=== PATIENT | female | born 1990 | race Caucasian/White ===

== ENCOUNTER 2019-09-06 22:50 | Emergency (ER) | payer OTHER, MEDICAID, SELFPAY ==
[2019-09-06 22:54] VITALS: BP 129/86; PULSE 72; RESP 16; TEMP 36.7; O2SAT 96; BMI 22.4
--- NOTE | 2019-09-06 23:05 | ED_ITS ---
HPI - Dental/Oral General Chief complaint: Dental/Oral Stated complaint: thinks abcess in mouth Time Seen by Provider: 09/06/19 22:55 Source: patient Mode of arrival: Ambulatory Limitations: no limitations History of Present Illness HPI Narrative: 29-year-old female with poor dentition here for evaluation of which she thinks is an abscess on the top of her mouth. She is scheduled to see a dental ?specialist? at the beginning of next month and [place] to take care of her poor dentition. She states for the past couple days she has noticed some sores on the top of her mouth. She states that she did talk with her doctor [facility] thought that this was potentially an ulcer. Related Data Previous Rx's Medication Instructions Recorded prednisone 50 mg PO [facility] 3 Days #0 tab 05/29/17 penicillin V potassium 500 mg PO QID 7 Days #28 tab 09/06/19 Allergies Allergy/AdvReac Type Severity Reaction Status Date / Time metronidazole [From [facility]YL] Allergy Unknown Unverified 01/23/18 12:18 Review of Systems Constitutional Constitutional: Denies fever(s) ENT Comments: Pain in the top of mouth Cardiovascular Cardiovascular: Denies dyspnea Respiratory Respiratory: Denies dyspnea Integumentary/Breasts Skin/Breast: Denies rash Neurologic Neurologic: Denies behavioral changes Psychiatric Psychiatric: Denies behavioral changes Patient History Medical History Allergic reaction to drug (Inactive) Drug abuse (Acute) Social History Smoking Status: Current every day smoker alcohol intake frequency: 0-2 drinks per day Substance Use Type: marijuana Exam Initial Vital Signs Initial Vital Signs: Vital Signs Temperature 98.1 F 09/06/19 22:54 Pulse Rate 72 09/06/19 22:54 Respiratory Rate 16 09/06/19 22:54 Blood Pressure 129/86 09/06/19 22:54 Pulse Oximetry 96 09/06/19 22:54 Const General: cooperative and comfortable Orientation: alert and awake HENMT Head: normal to inspection and normocephalic Ears: TM's normal bilaterally Nose: external nose normal Face and sinus: normal facial exam Mouth: other (Small sore on the top of her mouth right side) Teeth and gingiva: poor dentition Throat: posterior oropharynx normal Resp Effort & Inspection: normal respiratory effort Cardio Rate: regular rate Skin Lesions: no lesions Rashes: no rashes Neuro General: alert, awake and oriented x3 Extrem General: normal to inspection and capillary refill normal Course Orders Ordered: Discontinued Medications Penicillin V Potassium (Veetids) 500 mg PO NOW ONE Stop: 09/06/19 23:07 Last Admin: 09/06/19 23:19 Dose: 500 mg Documented by: SANDER Vital Signs Vital signs: Vital Signs - 8 hr 09/06/19 22:54 Temperature 98.1 F Pulse Rate 72 Respiratory Rate 16 Blood Pressure 129/86 Pulse Oximetry 96 MDM - Dental/Oral MDM Narrative Medical decision making narrative: No drainable abscess seen on her exam however she does have very poor dentition. There is a small area on the top of her mouth to the right that I would say would be consistent with a very early abscess. Patient was given a 1st dose of antibiotics here in the ER was sent home with a prescription. Informed her that she should keep all of her scheduled appointments a specially with the dental specialist the beginning of next month. She was given return precautions. She expressed understanding and agreement with plan. Discharge Plan Departure Patient Disposition: Home Clinical Impression: Dental abscess Discharge Date/Time: 09/06/19 23:21 Instructions: Tooth Decay, Tooth Abscess Activity Restrictions/Additional Instructions: Take the antibiotics as directed. Keep all of your scheduled medical ap pointments especially the dental appointment at the beginning of next month. Contact your primary provider for follow-up. Return to the emergency department for any new symptoms Prescriptions: New penicillin V potassium 500 mg tablet 500 mg PO QID 7 Days Qty: 28 RF: 0 No Action prednisone 50 MG tablet 50 mg PO [facility] 3 Days Qty: 0 RF: 0
[2019-09-06] MEDS: PENICILLIN VK 250 MG TABLET 500 MG PO (23:19)
--- NOTE | 2019-09-06 23:32 | PC.NURSE ---
Dentition assessed by . Pt medicated per order. tolerated well.
== END 2019-09-06 23:21 | disposition home or self-care (01) ==
PROVIDERS: Emergency Provider Emergency Medicine
DX: K04.7 Periapical abscess without sinus (principal)
CPT/HCPCS: 99282; 99283

== ENCOUNTER 2023-10-23 04:17 | Inpatient (IN) | payer OTHER, MEDICAID, SELFPAY ==
[2023-10-23] VITALS (8 sets, daily range): BP systolic 92–133; BP diastolic 47–99; PULSE 92–110; RESP 16–21; TEMP 35.9–37.3; O2SAT 96–100; BMI 27.3
[2023-10-23 05:13] LABS: Bacteria Urine Moderate (10-30); Mucus Urine 1+ (Negative); RBC Urine 0-1/HPF (0-5/HPF); Squamous Epithelial Cell Urine 5-10 /HPF (0-5/HPF); WBC Urine 5-10/HPF (0-5/HPF)
[2023-10-23 05:14] LABS: Culture Indicated Urine Specimen Cultured
--- NOTE | 2023-10-23 06:34 | ED_ITS ---
HPI - Female Genitourinary <Jacki Carballo DO - Last Filed: 10/26/23 20:44> General Chief complaint: Urogenital-Female Stated complaint: possible kidney infection Time Seen by Provider: 10/23/23 06:34 Source: patient Mode of arrival: Ambulatory History of Present Illness HPI Narrative: Patient is a 33-year-old female with current Trichomonas infection but allergic to Flagyl presenting today with 3 days of left-sided flank pain. She reports that it radiates around to her front. She feels nauseous at times but no vomiting. She has had some body aches she is also having some painful frequent urination. Does not think that she has had fever or chills. No chest pain or other symptoms. She reports that she had 1 kidney stone while with her son who is now 13. No other kidney stones. Related Data Home Medications Medication Instructions Recorded Confirmed albuterol sulfate 90 mcg/actuation 2 puff inhalation Q4H PRN wheezing 10/23/23 10/23/23 aerosol inhaler sertraline 50 mg tablet 50 mg PO DAILY 10/23/23 10/23/23 Previous Rx's Medication Instructions Recorded doxycycline hyclate 100 mg capsule 100 mg PO BID #28 caps 10/25/23 Allergies Allergy/AdvReac Type Severity Reaction Status Date / Time metronidazole [From FLAGYL] Allergy Unknown Unverified 01/23/18 12:18 Patient History <DO Olamide Jaime Last Filed: 10/26/23 20:44> Medical History (Updated 10/25/23 @ 05:43 by Beryl Levine MD) Drug abuse Allergic reaction to drug alcohol intake frequency: 0-2 drinks per day Substance Use Type: marijuana Exam <DO Olamide Jaime Last Filed: 10/26/23 20:44> Initial Vital Signs Initial Vital Signs: Vital Signs Temperature 97.3 F L 10/23/23 04:45 Pulse Rate 108 H 10/23/23 04:45 Respiratory Rate 18 10/23/23 04:45 Blood Pressure 133/60 10/23/23 04:45 Pulse Oximetry 96 10/23/23 04:45 Oxygen Delivery Method Room Air 10/23/23 04:45 GENERAL: Alert 33-year-old female appears to not feel well and in no acute distress. HEENT: Head atraumatic,EOMI, pupils reactive, face symmetric, moist mucous membranes CARDIOVASCULAR: Mildly tachycardic no murmur RESPIRATORY: Breath sounds equal bilaterally, no wheezes rales or rhonchi. ABDOMEN: Soft mild left lower quadrant pain no guarding or rebound : Tender left flank pain EXTREMITIES: Normal range of motion, no clubbing or edema. Neurovascularly intact NEUROLOGICAL: Alert and oriented x4. SKIN: Warm, dry, no laceration, no petechiae, no rashes or lesions. <Oj Rodriguez MD - Last Filed: 10/23/23 13:26> Initial Vital Signs Initial Vital Signs: Vital Signs Temperature 97.3 F L 10/23/23 04:45 Pulse Rate 108 H 10/23/23 04:45 Respiratory Rate 18 10/23/23 04:45 Blood Pressure 133/60 10/23/23 04:45 Pulse Oximetry 96 10/23/23 04:45 Oxygen Delivery Method Room Air 10/23/23 04:45 Course <Jacki Carballo DO - Last Filed: 10/26/23 20:44> Orders Ordered: Discontinued Medications Acetaminophen (Acetaminophen 325 Mg Tablet) 650 mg PO Q6H PRN PRN Reason: Fever/Mild Pain (1-3) Last Admin: 10/24/23 04:11 Dose: 650 mg Documented By: Admin: 10/23/23 18:51 Dose: 650 mg Documented By: KEATON Albuterol (Albuterol 2.5 Mg/3 Ml Neb (Adult)) 2.5 mg INH RTQ4HR PRN PRN Reason: Shortness Of Breath Albuterol (Albuterol 2.5 Mg/3 Ml Neb (Adult)) 2.5 mg INH RTQ2HR PRN PRN Reason: shortness of breath Albuterol (Albuterol 2.5 Mg/3 Ml Neb (Adult)) 2.5 mg INH RTQ4HR [facility] Last Admin: 10/24/23 12:31 Dose: Not Given Documented By: Admin: 10/24/23 07:28 Dose: 2.5 mg Documented By: Admin: 10/24/23 03:27 Dose: Not Given Documented By: Admin: 10/23/23 23:13 Dose: 2.5 mg Documented By: Admin: 10/23/23 19:49 Dose: Not Given Documented By: Admin: 10/23/23 16:00 Dose: 2.5 mg Documented By: GARY Docusate Sodium (Docusate 100 Mg Capsule) 100 mg PO BID PRN PRN Reason: Constipation Doxycycline Hyclate (Doxycycline Hyclate 100 Mg Tablet) 100 mg PO BID [facility] Last Admin: 10/24/23 09:26 Dose: 100 mg Documented By: Admin: 10/23/23 21:13 Dose: 100 mg Documented By: SHILPA Sodium Chloride (Normal Saline 0.9%) 1,000 mls @ 1,000 mls/hr IV BOLUS ONE Stop: 10/23/23 07:41 Last Infusion: 10/23/23 08:46 Dose: Infused Documented By: Admin: 10/23/23 07:47 Dose: 1,000 mls/hr Documented By: ROB Ceftriaxone Sodium 1,000 mg/ (Sodium Chloride) 100 mls @ 200 mls/hr IV NOW ONE Stop: 10/23/23 06:43 Last Infusion: 10/23/23 08:26 Dose: Infused Documented By: Admin: 10/23/23 07:46 Dose: 200 mls/hr Documented By: ROB Sodium Chloride (Normal Saline 0.9%) 1,000 mls @ 1,000 mls/hr IV BOLUS ONE Stop: 10/23/23 09:25 Last Infusion: 10/23/23 09:23 Dose: Infused Documented By: Admin: 10/23/23 08:46 Dose: 1,000 mls/hr Documented By: TYRONE Doxycycline Hyclate 100 mg/ (Sodium Chloride) 100 mls @ 100 mls/hr IV NOW ONE Stop: 10/23/23 12:43 Last Infusion: 10/23/23 13:45 Dose: 100 mls/hr Documented By: Admin: 10/23/23 13:07 Dose: 100 mls/hr Documented By: ROB Lactated Ringer's (Lactated Ringers) 1,000 mls @ 100 mls/hr IV CONT ALDA Last Admin: 10/24/23 04:11 Dose: 100 mls/hr Documented By: Infusion: 10/24/23 01:36 Dose: Infused Documented By: Admin: 10/23/23 15:36 Dose: 100 mls/hr Documented By: KEATON Clindamycin Phosphate 900 mg/ (Sodium Chloride) 106 mls @ 106 mls/hr IV Q8H [facility] Last Admin: 10/23/23 17:06 Dose: Not Given Documented By: KEATON Ceftriaxone Sodium 1,000 mg/ (Sodium Chloride) 100 mls @ 200 mls/hr IV Q24H [facility] Ceftriaxone Sodium 1,000 mg/ (Sodium Chloride) 100 mls @ 200 mls/hr IV Q24H [facility] Last Infusion: 10/24/23 07:00 Dose: Infused Documented By: Admin: 10/24/23 06:07 Dose: 200 mls/hr Documented By: SHILPA Clindamycin Phosphate (Cleocin) 900 mg in 50 mls @ 50 mls/hr IV Q8H [facility] Last Infusion: 10/24/23 09:27 Dose: Infused Documented By: Admin: 10/24/23 06:42 Dose: 50 mls/hr Documented By: Infusion: 10/24/23 00:20 Dose: Infused Documented By: Admin: 10/23/23 23:12 Dose: 50 mls/hr Documented By: Infusion: 10/23/23 16:47 Dose: Infused Documented By: Admin: 10/23/23 15:36 Dose: 50 mls/hr Documented By: KEATON Ibuprofen (Ibuprofen 600 Mg Tablet) 600 mg PO Q6H PRN PRN Reason: Fever/Mild Pain (1-3) Last Admin: 10/24/23 09:26 Dose: 600 mg Documented By: Admin: 10/23/23 18:50 Dose: 600 mg Documented By: KEATON Ketorolac Tromethamine (Ketorolac 30 Mg/Ml Vial) 15 mg IV NOW ONE Stop: 10/23/23 06:43 Last Admin: 10/23/23 07:47 Dose: 15 mg Documented By: ROB Ketorolac Tromethamine (Ketorolac 30 Mg/Ml Vial) 15 mg IV NOW ONE Stop: 10/23/23 11:27 Last Admin: 10/23/23 11:43 Dose: 15 mg Documented By: ROB Naloxone HCl (Naloxone 0.4 Mg/Ml Vial) 0.2 mg IV Q2MIN PRN PRN Reason: Opiate Reversal Ondansetron HCl (Ondansetron 4 Mg/2 Ml Inj) 4 mg IV Q8HR PRN PRN Reason: Nausea And Vomiting Last Admin: 10/24/23 10:20 Dose: 4 mg Documented By: TOÑA Oxycodone HCl (Oxycodone Ir 5 Mg Tablet) 5 mg PO Q3H PRN PRN Reason: Pain, Moderate (4-6) Last Admin: 10/24/23 09:26 Dose: 5 mg Documented By: Admin: 10/24/23 04:11 Dose: 5 mg Documented By: Admin: 10/23/23 21:21 Dose: 5 mg Documented By: SHILPA Polyethylene Glycol (Polyethylene Glycol 3350 17 Gm Powd.Pack) 17 gm PO DAILY PRN PRN Reason: Constipation Vital Signs Vital signs: Vital Signs - 8 hr 10/23/23 08:25 10/23/23 08:26 10/23/23 09:23 Pulse Rate 103 H 110 H 107 H Respiratory Rate 16 18 Blood Pressure 92/55 L 100/58 L 104/56 L Pulse Oximetry 98 97 Oxygen Delivery Method Room Air Room Air 10/23/23 10:33 Pulse Rate 101 H Respiratory Rate 18 Blood Pressure 100/49 L Pulse Oximetry 100 Oxygen Delivery Method Room Air <Oj Rodriguez MD - Last Filed: 10/23/23 13:26> Orders Ordered: Discontinued Medications Acetaminophen (Acetaminophen 325 Mg Tablet) 650 mg PO Q6H PRN PRN Reason: Fever/Mild Pain (1-3) Last Admin: 10/24/23 04:11 Dose: 650 mg Documented By: Admin: 10/23/23 18:51 Dose: 650 mg Documented By: KEATON Albuterol (Albuterol 2.5 Mg/3 Ml Neb (Adult)) 2.5 mg INH RTQ4HR PRN PRN Reason: Shortness Of Breath Albuterol (Albuterol 2.5 Mg/3 Ml Neb (Adult)) 2.5 mg INH RTQ2HR PRN PRN Reason: shortness of breath Albuterol (Albuterol 2.5 Mg/3 Ml Neb (Adult)) 2.5 mg INH RTQ4HR [facility] Last Admin: 10/24/23 12:31 Dose: Not Given Documented By: Admin: 10/24/23 07:28 Dose: 2.5 mg Documented By: Admin: 10/24/23 03:27 Dose: Not Given Documented By: Admin: 10/23/23 23:13 Dose: 2.5 mg Documented By: Admin: 10/23/23 19:49 Dose: Not Given Documented By: Admin: 10/23/23 16:00 Dose: 2.5 mg Documented By: GARY Docusate Sodium (Docusate 100 Mg Capsule) 100 mg PO BID PRN PRN Reason: Constipation Doxycycline Hyclate (Doxycycline Hyclate 100 Mg Tablet) 100 mg PO BID [facility] Last Admin: 10/24/23 09:26 Dose: 100 mg Documented By: Admin: 10/23/23 21:13 Dose: 100 mg Documented By: SHILPA Sodium Chloride (Normal Saline 0.9%) 1,000 mls @ 1,000 mls/hr IV BOLUS ONE Stop: 10/23/23 07:41 Last Infusion: 10/23/23 08:46 Dose: Infused Documented By: Admin: 10/23/23 07:47 Dose: 1,000 mls/hr Documented By: ROB Ceftriaxone Sodium 1,000 mg/ (Sodium Chloride) 100 mls @ 200 mls/hr IV NOW ONE Stop: 10/23/23 06:43 Last Infusion: 10/23/23 08:26 Dose: Infused Documented By: Admin: 10/23/23 07:46 Dose: 200 mls/hr Documented By: ROB Sodium Chloride (Normal Saline 0.9%) 1,000 mls @ 1,000 mls/hr IV BOLUS ONE Stop: 10/23/23 09:25 Last Infusion: 10/23/23 09:23 Dose: Infused Documented By: Admin: 10/23/23 08:46 Dose: 1,000 mls/hr Documented By: TYRONE Doxycycline Hyclate 100 mg/ (Sodium Chloride) 100 mls @ 100 mls/hr IV NOW ONE Stop: 10/23/23 12:43 Last Infusion: 10/23/23 13:45 Dose: 100 mls/hr Documented By: Admin: 10/23/23 13:07 Dose: 100 mls/hr Documented By: ROB Lactated Ringer's (Lactated Ringers) 1,000 mls @ 100 mls/hr IV CONT ALDA Last Admin: 10/24/23 04:11 Dose: 100 mls/hr Documented By: Infusion: 10/24/23 01:36 Dose: Infused Documented By: Admin: 10/23/23 15:36 Dose: 100 mls/hr Documented By: KEATON Clindamycin Phosphate 900 mg/ (Sodium Chloride) 106 mls @ 106 mls/hr IV Q8H [facility] Last Admin: 10/23/23 17:06 Dose: Not Given Documented By: KEATON Ceftriaxone Sodium 1,000 mg/ (Sodium Chloride) 100 mls @ 200 mls/hr IV Q24H [facility] Ceftriaxone Sodium 1,000 mg/ (Sodium Chloride) 100 mls @ 200 mls/hr IV Q24H [facility] Last Infusion: 10/24/23 07:00 Dose: Infused Documented By: Admin: 10/24/23 06:07 Dose: 200 mls/hr Documented By: SHILPA Clindamycin Phosphate (Cleocin) 900 mg in 50 mls @ 50 mls/hr IV Q8H [facility] Last Infusion: 10/24/23 09:27 Dose: Infused Documented By: Admin: 10/24/23 06:42 Dose: 50 mls/hr Documented By: Infusion: 10/24/23 00:20 Dose: Infused Documented By: Admin: 10/23/23 23:12 Dose: 50 mls/hr Documented By: Infusion: 10/23/23 16:47 Dose: Infused Documented By: Admin: 10/23/23 15:36 Dose: 50 mls/hr Documented By: KEATON Ibuprofen (Ibuprofen 600 Mg Tablet) 600 mg PO Q6H PRN PRN Reason: Fever/Mild Pain (1-3) Last Admin: 10/24/23 09:26 Dose: 600 mg Documented By: Admin: 10/23/23 18:50 Dose: 600 mg Documented By: KEATON Ketorolac Tromethamine (Ketorolac 30 Mg/Ml Vial) 15 mg IV NOW ONE Stop: 10/23/23 06:43 Last Admin: 10/23/23 07:47 Dose: 15 mg Documented By: ROB Ketorolac Tromethamine (Ketorolac 30 Mg/Ml Vial) 15 mg IV NOW ONE Stop: 10/23/23 11:27 Last Admin: 10/23/23 11:43 Dose: 15 mg Documented By: ROB Naloxone HCl (Naloxone 0.4 Mg/Ml Vial) 0.2 mg IV Q2MIN PRN PRN Reason: Opiate Reversal Ondansetron HCl (Ondansetron 4 Mg/2 Ml Inj) 4 mg IV Q8HR PRN PRN Reason: Nausea And Vomiting Last Admin: 10/24/23 10:20 Dose: 4 mg Documented By: TOÑA Oxycodone HCl (Oxycodone Ir 5 Mg Tablet) 5 mg PO Q3H PRN PRN Reason: Pain, Moderate (4-6) Last Admin: 10/24/23 09:26 Dose: 5 mg Documented By: Admin: 10/24/23 04:11 Dose: 5 mg Documented By: Admin: 10/23/23 21:21 Dose: 5 mg Documented By: SHILPA Polyethylene Glycol (Polyethylene Glycol 3350 17 Gm Powd.Pack) 17 gm PO DAILY PRN PRN Reason: Constipation Reevaluation(s) Reevaluation #1: 10:15 a.m., CT results are reviewed indicating concern for possible ovarian torsion. I personally interviewed the patient, she has had 3 days of left lower quadrant pain, onset was abrupt was associated with nausea no fevers she has pain with urination but it has not dysuria at the urethra it is pain in the left lower quadrant. Has a history of being diagnosed with Trichomonas however not treated, she has an allergy to Flagyl therefore has not received any treatment. Has a history of gonorrhea and chlamydia in the past, tells me that on September 25 she was tested and negative at [facility]. Presently having any vaginal discharge. She is feeling better after treatment. On examination she has normal bowel sounds. She does not have CVAT. She is tender in the left pelvis. Patient is advised of the plan to obtain a pelvic ultrasound. She is in agreement. Reevaluation #2: Pelvic ultrasound is not consistent with ovarian torsion. There is concern for bilateral dilated fallopian tubes with the left side being tender tubo-ovarian abscesses considered. Pelvic exam is performed. The patient has a purulent cervical discharge she has cervical motion tenderness. I am unable to appreciate adnexal mass or tenderness on pelvic exam but she has consistent left pelvic tenderness when palpated from the abdominal wall. I have added doxycycline to her medications, I note that she has a metronidazole allergy. Additionally, we will consult Gynecology. Consultations Consultation #1: D/W Dr Banda, [employer], coming to see pt. after seeing the patient, Dr. Banda will admit Vital Signs Vital signs: Vital Signs - 8 hr 10/23/23 08:25 10/23/23 08:26 10/23/23 09:23 Pulse Rate 103 H 110 H 107 H Respiratory Rate 16 18 Blood Pressure 92/55 L 100/58 L 104/56 L Pulse Oximetry 98 97 Oxygen Delivery Method Room Air Room Air 10/23/23 10:33 Pulse Rate 101 H Respiratory Rate 18 Blood Pressure 100/49 L Pulse Oximetry 100 Oxygen Delivery Method Room Air MDM - Female Genitourinary <Jacki Kait, DO - Last Filed: 10/26/23 20:44> Lab Data 10/24/23 06:34 10/23/23 07:30 Labs: Lab Results 10/23/23 10/23/23 10/23/23 Range/Units 04:57 07:30 07:35 WBC 17.5 H (4.5-11.0) X10^3/uL RBC 4.26 (4.0-5.2) X10^6/uL Hgb 13.0 (12.0-16.0) g/dL Hct 37.4 (36-46) % MCV 87.7 (80-100) fL MCH 30.5 (26-34) PG MCHC 34.8 (30-36) % RDW 13.1 (11.6-14.8) % Plt Count 180 (150-400) X10^3/uL Neut % (Auto) 83.7 H (50-75) % Lymph % (Auto) 9.3 L (25-40) % [place] % (Auto) 5.7 (3-14) % Eos % (Auto) 0.9 L (2-4) % Baso % (Auto) 0.4 (0-2) % Neut # (Auto) 48572 H (3423-8021) /uL Lymph # (Auto) 1600 (3586-8108) /uL [place] # (Auto) 1000 H (0-900) /uL Eos # (Auto) 200 (0-450) /uL Baso # (Auto) 100 (0-100) /uL Sodium 133 L (137-145) mmol/L Potassium 4.3 (3.4-5.1) mmol/L Chloride 100 (98-107) mmol/L Carbon Dioxide 25 (22-32) mmol/L BUN 13 (7-17) mg/dL Creatinine 0.51 L (0.52-1.04) mg/dL Estimated GFR > 60 (>60) mL/min BUN/Creatinine Ratio 25.5 H (6-22) Glucose 113 H (70-100) mg/dL Lactate 1.2 (0.7-2.1) mmol/L Calcium 8.9 (8.4-10.2) mg/dL Total Bilirubin 0.7 (0.2-1.3) mg/dL AST 28 (14-36) IU/L ALT 20 (<35) IU/L Alkaline Phosphatase 60 (38-126) U/L Total Protein 8.1 (6.3-8.2) g/dL Albumin 4.1 (3.5-5.0) g/dL Globulin 4.0 (1.7-4.1) g/dL Albumin/Globulin Ratio 1.0 (1.0-2.8) Serum , Qual Negative (Negative) Urine RBC 0-1/hpf (0-5/HPF) Urine WBC 5-10/hpf H (0-5/HPF) Ur Squamous Epith Cells 5-10 /hpf H (0-5/HPF) Urine Bacteria Moderate (10-30) H (None) Urine Mucus 1+ H (Negative) Ur Culture Indicated? Specimen cultured Urine Test Negative (Negative) Ur Chlamydia DNA (PCR) N gonorrhoeae DNA (PCR) 10/23/23 Range/Units 12:40 WBC (4.5-11.0) X10^3/uL RBC (4.0-5.2) X10^6/uL Hgb (12.0-16.0) g/dL Hct (36-46) % MCV (80-100) fL MCH (26-34) PG MCHC (30-36) % RDW (11.6-14.8) % Plt Count (150-400) X10^3/uL Neut % (Auto) (50-75) % Lymph % (Auto) (25-40) % [place] % (Auto) (3-14) % Eos % (Auto) (2-4) % Baso % (Auto) (0-2) % Neut # (Auto) (0831-7953) /uL Lymph # (Auto) (9153-4262) /uL [place] # (Auto) (0-900) /uL Eos # (Auto) (0-450) /uL Baso # (Auto) (0-100) /uL Sodium (137-145) mmol/L Potassium (3.4-5.1) mmol/L Chloride (98-107) mmol/L Carbon Dioxide (22-32) mmol/L BUN (7-17) mg/dL Creatinine (0.52-1.04) mg/dL Estimated GFR (>60) mL/min BUN/Creatinine Ratio (6-22) Glucose (70-100) mg/dL Lactate (0.7-2.1) mmol/L Calcium (8.4-10.2) mg/dL Total Bilirubin (0.2-1.3) mg/dL AST (14-36) IU/L ALT (<35) IU/L Alkaline Phosphatase (38-126) U/L Total Protein (6.3-8.2) g/dL Albumin (3.5-5.0) g/dL Globulin (1.7-4.1) g/dL Albumin/Globulin Ratio (1.0-2.8) Serum , Qual (Negative) Urine RBC (0-5/HPF) Urine WBC (0-5/HPF) Ur Squamous Epith Cells (0-5/HPF) Urine Bacteria (None) Urine Mucus (Negative) Ur Culture Indicated? Urine Test (Negative) Ur Chlamydia DNA (PCR) Not detected N gonorrhoeae DNA (PCR) Not detected Urine Dip Bedside Urine Glucose Negative Bedside Urine Bilirubin + 1 Bedside Urine Ketone - Negative Urine Specific [place] 1.015 Bedside Urine Occult Blood - Negative Bedside Urine pH 6.0 Bedside Urine Protein + 30 Bedside Urine Urobilinogen - Negative Bedside Urine Nitrite - Negative Bedside Urine Leukocytes + 70 Esterase MDM Narrative Medical decision making narrative: Patient 33-year-old female presents today with left flank pain. She does have symptoms consistent with UTI and possible pyelonephritis. However pain radiating to her groin concern for kidney stone as well. Urinalysis does show bacteria leukocytes consistent UTI. Blood work and imaging pending. Patient signed out to After imaging and further evaluation, patient appears to have a pelvic infection and likely tubo-ovarian abscess based on ultrasound findings. She is nontoxic in appearance but has leukocytosis and is hemodynamically stable. She has been started on ceftriaxone and doxycycline. Gynecology has seen the patient and will admit. <Oj Rodriguez MD - Last Filed: 10/23/23 13:26> Lab Data Lab results narrative: [place] [address]. CMP is unremarkable, test is negative, urinalysis has pyuria and bacteriuria mature squamous epithelial cells present as well Labs: Lab Results 10/23/23 10/23/23 10/23/23 Range/Units 04:57 07:30 07:35 WBC 17.5 H (4.5-11.0) X10^3/uL RBC 4.26 (4.0-5.2) X10^6/uL Hgb 13.0 (12.0-16.0) g/dL Hct 37.4 (36-46) % MCV 87.7 (80-100) fL MCH 30.5 (26-34) PG MCHC 34.8 (30-36) % RDW 13.1 (11.6-14.8) % Plt Count 180 (150-400) X10^3/uL Neut % (Auto) 83.7 H (50-75) % Lymph % (Auto) 9.3 L (25-40) % [place] % (Auto) 5.7 (3-14) % Eos % (Auto) 0.9 L (2-4) % Baso % (Auto) 0.4 (0-2) % Neut # (Auto) 01626 H (9740-8029) /uL Lymph # (Auto) 1600 (4768-6886) /uL [place] # (Auto) 1000 H (0-900) /uL Eos # (Auto) 200 (0-450) /uL Baso # (Auto) 100 (0-100) /uL Sodium 133 L (137-145) mmol/L Potassium 4.3 (3.4-5.1) mmol/L Chloride 100 (98-107) mmol/L Carbon Dioxide 25 (22-32) mmol/L BUN 13 (7-17) mg/dL Creatinine 0.51 L (0.52-1.04) mg/dL Estimated GFR > 60 (>60) mL/min BUN/Creatinine Ratio 25.5 H (6-22) Glucose 113 H (70-100) mg/dL Lactate 1.2 (0.7-2.1) mmol/L Calcium 8.9 (8.4-10.2) mg/dL Total Bilirubin 0.7 (0.2-1.3) mg/dL AST 28 (14-36) IU/L ALT 20 (<35) IU/L Alkaline Phosphatase 60 (38-126) U/L Total Protein 8.1 (6.3-8.2) g/dL Albumin 4.1 (3.5-5.0) g/dL Globulin 4.0 (1.7-4.1) g/dL Albumin/Globulin Ratio 1.0 (1.0-2.8) Serum , Qual Negative (Negative) Urine RBC 0-1/hpf (0-5/HPF) Urine WBC 5-10/hpf H (0-5/HPF) Ur Squamous Epith Cells 5-10 /hpf H (0-5/HPF) Urine Bacteria Moderate (10-30) H (None) Urine Mucus 1+ H (Negative) Ur Culture Indicated? Specimen cultured Urine Test Negative (Negative) Ur Chlamydia DNA (PCR) N gonorrhoeae DNA (PCR) 10/23/23 Range/Units 12:40 WBC (4.5-11.0) X10^3/uL RBC (4.0-5.2) X10^6/uL Hgb (12.0-16.0) g/dL Hct (36-46) % MCV (80-100) fL MCH (26-34) PG MCHC (30-36) % RDW (11.6-14.8) % Plt Count (150-400) X10^3/uL Neut % (Auto) (50-75) % Lymph % (Auto) (25-40) % [place] % (Auto) (3-14) % Eos % (Auto) (2-4) % Baso % (Auto) (0-2) % Neut # (Auto) (1969-8063) /uL Lymph # (Auto) (2691-7681) /uL [place] # (Auto) (0-900) /uL Eos # (Auto) (0-450) /uL Baso # (Auto) (0-100) /uL Sodium (137-145) mmol/L Potassium (3.4-5.1) mmol/L Chloride (98-107) mmol/L Carbon Dioxide (22-32) mmol/L BUN (7-17) mg/dL Creatinine (0.52-1.04) mg/dL Estimated GFR (>60) mL/min BUN/Creatinine Ratio (6-22) Glucose (70-100) mg/dL Lactate (0.7-2.1) mmol/L Calcium (8.4-10.2) mg/dL Total Bilirubin (0.2-1.3) mg/dL AST (14-36) IU/L ALT (<35) IU/L Alkaline Phosphatase (38-126) U/L Total Protein (6.3-8.2) g/dL Albumin (3.5-5.0) g/dL Globulin (1.7-4.1) g/dL Albumin/Globulin Ratio (1.0-2.8) Serum , Qual (Negative) Urine RBC (0-5/HPF) Urine WBC (0-5/HPF) Ur Squamous Epith Cells (0-5/HPF) Urine Bacteria (None) Urine Mucus (Negative) Ur Culture Indicated? Urine Test (Negative) Ur Chlamydia DNA (PCR) Not detected N gonorrhoeae DNA (PCR) Not detected Urine Dip Bedside Urine Glucose Negative Bedside Urine Bilirubin + 1 Bedside Urine Ketone - Negative Urine Specific [place] 1.015 Bedside Urine Occult Blood - Negative Bedside Urine pH 6.0 Bedside Urine Protein + 30 Bedside Urine Urobilinogen - Negative Bedside Urine Nitrite - Negative Bedside Urine Leukocytes + 70 Esterase Imaging Data US - NURSING CLERK: Radiologist's Impression: PROCEDURE: US PELVIC COMPLETE INDICATIONS: Severe left leg pain/left lower quadrant pain. TECHNIQUE: Real-time scanning was performed of the pelvic organs, with image documentation. Additional endovaginal scanning was necessary due to incomplete visualization of the adnexal and endometrial structures by transabdominal scanning. COMPARISON: [facility], CT, ABD/PELVIS W/CON (PNL), 12/21/2013, 17:39. MR, ABDOMEN W&W/O CONTRAST, 12/22/2013, 20:16. US, PELVIS SONO TRANSVAGINAL (PNL), 12/23/2013, 12:29. [facility], CT, CT KIDNEY URETER BLADDER (KUB), 10/23/2023, 8:17. FINDINGS: Uterus: Uterus is normal in size measuring 7.8 x 4.9 x 4.9 cm. The myometrium is heterogeneous. The endometrium measures 7.6 mm combined thickness. -There is a 2.1 x 1.9 x 1.6 cm intramural fibroid in the anterior midline near the fundus. -there is a smaller 1.7 x 1.3 x 1.3 cm masslike area in the left anterior fundus, demonstrating central sonolucency, suggesting fluid. Ovaries: Both ovaries are enlarged and have heterogeneous echotexture. The right ovary measures 7.5 x 5.4 x 5.2 cm, with a calculated ovarian volume of 89 cc. There is a thick-walled cyst in the right ovary measuring 4.5 x 4.1 x 2.6 cm. A 3.1 x 3.3 x 2.6 cm simple cyst is also noted in the right ovary. The left ovary measures 7.5 x 6.0 x 4.0 cm, with a calculated ovarian volume of 92 cc. There is a 4.2 x 3.9 x 2.9 cm thick wall complex cystic structure in the left ovary with peripheral increased vascularity. There is a 4.7 by 2.6 x 1.4 cm thick-walled anechoic structure adjacent to the left ovary, indeterminate (dilated fallopian tube versus a bowel). Suspect dilated fallopian tubes bilaterally. On Doppler ultrasound, vascularity is present in both ovaries. No adnexal masses are seen. Other: No pathologic free abdominal or pelvic fluid. IMPRESSION: 1. Ovaries are enlarged with complex cysts bilaterally. Question dilated fallopian tubes bilaterally. The ultrasound findings are suggestive of hydrosalpinx and tubal or abscesses. Recommend clinical correlation. After adequate treatment, recommend a short-term follow-up ultrasound. 2. Myomatous uterus with 2 uterine fibroids. One of the fibroid demonstrates central sonolucency suggesting fluid, most likely a degenerating fibroid. Consider MRI for follow-up evaluation if clinically indicated. The result was discussed with Dr. Rodriguez in ER. [facility] Narrative Medical decision making narrative: Patient 33-year-old female presents today with left flank pain. She does have symptoms consistent with UTI and possible pyelonephritis. However pain radiating to her groin concern for kidney stone as well. Urinalysis does show bacteria leukocytes consistent UTI. Patient signed out to After imaging and further evaluation, patient appears to have a pelvic infection and likely tubo-ovarian abscess based on ultrasound findings. She is nontoxic in appearance but has leukocytosis and is hemodynamically stable. She has been started on ceftriaxone and doxycycline. Gynecology has seen the patient and will admit. Discharge Plan Departure Patient Disposition: Admitted As Inpatient Clinical Impression: Tubo-ovarian abscess Admit Date/Time: 10/23/23 13:14 Admit Provider: Opal Banda
--- NOTE | 2023-10-23 06:42 | DI.CT.S_ITS ---
PROCEDURE: CT KIDNEY URETER BLADDER (KUB) INDICATIONS: left flank pain TECHNIQUE: Axial sections were acquired from the lung bases to the pubic symphysis. Coronal and sagittal reformats were performed. For radiation dose reduction, the following was used: automated exposure control, adjustment of mA and/or kV according to patient size. COMPARISON: None. FINDINGS: Image quality: Diagnostic. Lower Chest: No significant findings. URINARY: Right Kidney: No stones or hydronephrosis. Right Ureter: No hydroureter. Left Kidney: No stones or hydronephrosis. Left Ureter: No hydroureter. Bladder: Normal wall thickness. No stones. ABDOMEN: Liver: No contour-deforming solid mass. Gallbladder: No radiopaque gallstones or wall thickening. Biliary ducts: No biliary dilation. Pancreas: No ductal dilation. Spleen: Size is within normal limits. Adrenal Glands: No adrenal nodules. Stomach and Bowel: Normal colonic caliber, without significant wall thickening. Peritoneum: No abnormal intraperitoneal fluid. No free air. Ventral Wall: No hernia. Abdominal Nodes: No enlarged retroperitoneal or mesenteric lymph nodes. Vessels: Aorta and inferior vena cava are normal in size. PELVIS: Pelvic Organs: Ovaries appear prominent bilaterally. There is questionable appearance of very minimal stranding surrounding the left ovary. Pelvic Nodes: Unremarkable. Miscellaneous: No inguinal hernias are seen. Bones: Unremarkable. IMPRESSION: No obstructing stones or hydronephrosis. Ovaries are prominent bilaterally with minimal appearance stranding surrounding the left ovary. While this is overall nonspecific, pelvic ultrasound is recommended, as torsion cannot be excluded. Dictated by: Aisha Bassett M.D. on 10/23/2023 at 8:28 Approved by: Aisha Bassett M.D. on 10/23/2023 at 8:39
[2023-10-23 07:42] LABS: Add Manual Diff / Slide Review NO; Basophils Absolute Auto 100 /uL (0-100); Basophils Percent Auto 0.4 % (0-2); Eosinophils Absolute Auto 200 /uL (0-450); Eosinophils Percent Auto 0.9 % (2-4); Hematocrit 37.4 % (36-46); Lymphocytes Absolute Auto 1600 /uL (1100-4500); Lymphocytes Percent Auto 9.3 % (25-40); Mean Corpuscular HGB Conc 34.8 % (30-36); Mean Corpuscular Hemoglobin 30.5 PG (26-34); Mean Corpuscular Volume 87.7 fL (80-100); Monocytes Absolute Auto 1000 /uL (0-900); Monocytes Percent Auto 5.7 % (3-14); Neutrophils Absolute Auto 14600 /uL (1500-7000); Neutrophils Percent Auto 83.7 % (50-75); Platelet Count 180 X10^3/uL (150-400); Red Blood Cell Count 4.26 X10^6/uL (4.0-5.2); Red Cell Distribution Width 13.1 % (11.6-14.8); White Blood Cell Count 17.5 X10^3/uL (4.5-11.0)
[2023-10-23] MEDS: cefTRIAXone 1,000 MG in SODIUM CHLORIDE 0.9% 100 ML 200 MG IV (07:46)
[2023-10-23] MEDS: KETOROLAC 30 MG/ML VIAL 15 MG IV ×2 (07:47→11:43)
[2023-10-23] MEDS: SODIUM CHLORIDE 0.9% 1,000 ML 1000 ML IV ×2 (07:47→08:46)
[2023-10-23 07:59] LABS: Alanine Aminotransferase 20 IU/L (<35); Albumin 4.1 g/dL (3.5-5.0); Alkaline Phosphatase 60 U/L (38-126); Aspartate Aminotransferase 28 IU/L (14-36); BUN Creatinine Ratio 25.5 (6-22); Bilirubin Total 0.7 mg/dL (0.2-1.3); Blood Urea Nitrogen 13 mg/dL (7-17); Calcium 8.9 mg/dL (8.4-10.2); Carbon Dioxide 25 mmol/L (22-32); Chloride 100 mmol/L (98-107); Estimated Glomerular Filt Rate > 60 mL/min (>60); Glucose 113 mg/dL (70-100); Potassium 4.3 mmol/L (3.4-5.1); Sodium 133 mmol/L (137-145); Total Protein 8.1 g/dL (6.3-8.2)
[2023-10-23 08:00] LABS: HEMOLYSIS 100 (0-50)
[2023-10-23 08:05] LABS: Pregnancy Test Urine Negative (Negative)
--- NOTE | 2023-10-23 08:27 | PC.NURSE ---
Vitals obtained at 0820 and pt is now meeting sepsis criteria, Dr. Rodriguez notified and lactate and additional IVF ordered.
[2023-10-23 08:41] LABS: Lactate (Lactic Acid) 1.2 mmol/L (0.7-2.1)
--- NOTE | 2023-10-23 10:22 | DI.US.S_ITS ---
PROCEDURE: US PELVIC COMPLETE INDICATIONS: Severe left leg pain/left lower quadrant pain. TECHNIQUE: Real-time scanning was performed of the pelvic organs, with image documentation. Additional endovaginal scanning was necessary due to incomplete visualization of the adnexal and endometrial structures by transabdominal scanning. COMPARISON: [facility], CT, ABD/PELVIS W/CON (PNL), 12/21/2013, 17:39. MR, ABDOMEN W&W/O CONTRAST, 12/22/2013, 20:16. US, PELVIS SONO TRANSVAGINAL (PNL), 12/23/2013, 12:29. [facility], CT, CT KIDNEY URETER BLADDER (KUB), 10/23/2023, 8:17. FINDINGS: Uterus: Uterus is normal in size measuring 7.8 x 4.9 x 4.9 cm. The myometrium is heterogeneous. The endometrium measures 7.6 mm combined thickness. -There is a 2.1 x 1.9 x 1.6 cm intramural fibroid in the anterior midline near the fundus. -there is a smaller 1.7 x 1.3 x 1.3 cm masslike area in the left anterior fundus, demonstrating central sonolucency, suggesting fluid. Ovaries: Both ovaries are enlarged and have heterogeneous echotexture. The right ovary measures 7.5 x 5.4 x 5.2 cm, with a calculated ovarian volume of 89 cc. There is a thick-walled cyst in the right ovary measuring 4.5 x 4.1 x 2.6 cm. A 3.1 x 3.3 x 2.6 cm simple cyst is also noted in the right ovary. The left ovary measures 7.5 x 6.0 x 4.0 cm, with a calculated ovarian volume of 92 cc. There is a 4.2 x 3.9 x 2.9 cm thick wall complex cystic structure in the left ovary with peripheral increased vascularity. There is a 4.7 by 2.6 x 1.4 cm thick-walled anechoic structure adjacent to the left ovary, indeterminate (dilated fallopian tube versus a bowel). Suspect dilated fallopian tubes bilaterally. On Doppler ultrasound, vascularity is present in both ovaries. No adnexal masses are seen. Other: No pathologic free abdominal or pelvic fluid. IMPRESSION: 1. Ovaries are enlarged with complex cysts bilaterally. Question dilated fallopian tubes bilaterally. The ultrasound findings are suggestive of hydrosalpinx and tubal or abscesses. Recommend clinical correlation. After adequate treatment, recommend a short-term follow-up ultrasound. 2. Myomatous uterus with 2 uterine fibroids. One of the fibroid demonstrates central sonolucency suggesting fluid, most likely a degenerating fibroid. Consider MRI for follow-up evaluation if clinically indicated. The result was discussed with Dr. Rodriguez in ER. We strive to produce accurate, complete, and clear reports of imaging services. To assist us in improving patient care, this report was composed using standard report templates and voice recognition software. Therefore, it may contain abnormal punctuation, insertions and/or omissions. Occasional wrong-word or sound-alike substitutions may occur. Though we review the report and make efforts to correct it, we do recommend that the report be read carefully in proper context to recognize any text inaccuracies. Dictated by: Isaac Zaidi M.D. on 10/23/2023 at 11:30 Approved by: Isaac Zaidi M.D. on 10/23/2023 at 12:18
[2023-10-23 10:55] LABS: Pregnancy Test Serum,Qual Negative (Negative)
--- NOTE | 2023-10-23 11:30 | PC.NURSE ---
Pt has returned from MRI and hooked up to snuff drier. Pt still rates pain as a 2/10 and states that is behind his right eye and towards the middle of his head and it feels like pressure. Pt a&ox4 and answers all questions appropriately.
[2023-10-23] MEDS: DOXYCYCLINE 100 MG in SODIUM CHLORIDE 0.9% 100 ML IV (13:07)
--- NOTE | 2023-10-23 13:11 | PC.NURSE ---
Pt c/o 8/10 pain after pelvic exam. Requesting more pain meds and visibly uncomfortable. Dr Rodriguez notified.
--- NOTE | 2023-10-23 13:56 | P.HPOB_ITS ---
History of Present Illness History of Present Illness Reason for admission: other (Tubo-ovarian abscess) Narrative: Katie Eid is a 33 year old para 1 female presented to the emergency room complaining of 3 days of left pelvic pain. The patient states that for several months she has had issues with STD infections. She was treated for chlamydia but has a metronidazole allergy so they have been unable to cure the infection. The patient has not been sexually active for several months. When she urinates she has pressure and pain. Her menses are regular for most part although sometimes she has multiple episodes of bleeding per month and this has been going on for most of her life. Patient is unsure if she has fevers. She does have a history of narcotic abuse for some time, was on methadone program but currently is not an issue for the patient. Patient currently is homeless living in her car with her boyfriend. Patient states she is hepatitis-C positive for which she is being followed at [facility]. Patient has a long history of constipation. Patient has asthma for which she uses her albuterol inhaler multiple times a day. Patient was found to have an elevated white blood count and possible tubo- ovarian abscess by ultrasound. Physical exam patient's HEENT exam within normal limits. Lungs are clear to auscultation percussion. Heart is regular rate and rhythm no S3-S4 murmurs. No thyromegaly. Abdomen is soft with tenderness throughout the abdomen with more pain in the lower abdomen. Pelvic exam poor report from the emergency room doctor showed purulent material coming from the cervical os. ON LICENSE OF [facility] Medical History (Updated 10/23/23 @ 14:23 by Opal Banda MD) Drug abuse Allergic reaction to drug Social History Smoking Status: Current every day smoker Meds Home Medications and Allergies Home Medications Medication Instructions Recorded Confirmed Type prednisone 50 mg tablet 50 mg PO [facility] 3 days #0 tabs 05/29/17 Rx Allergies Allergy/AdvReac Type Severity Reaction Status Date / Time metronidazole [From FLAGYL] Allergy Unknown Unverified 01/23/18 12:18 Exam Vital Signs (past 8 hours): - 10/23/23 08:25 10/23/23 08:26 10/23/23 09:23 Temperature Pulse Rate 103 H 110 H 107 H Respiratory Rate 16 18 Blood Pressure 92/55 L 100/58 L 104/56 L Pulse Oximetry 98 97 Oxygen Delivery Method Room Air Room Air 10/23/23 10:33 10/23/23 13:18 Temperature 99.2 F Pulse Rate 101 H 106 H Respiratory Rate 18 21 Blood Pressure 100/49 L 129/59 L Pulse Oximetry 100 100 Oxygen Delivery Method Room Air Room Air Oxygen Delivery Method Room Air Objective Imaging US - abdomen: Radiologist's impression: [address] [address] Ultrasound Report Signed Patient: Katie Eid : 1990 Date of Service: 10/23/23 PROCEDURE: US PELVIC COMPLETE INDICATIONS: Severe left leg pain/left lower quadrant pain. TECHNIQUE: Real-time scanning was performed of the pelvic organs, with image documentation. Additional endovaginal scanning was necessary due to incomplete visualization of the adnexal and endometrial structures by transabdominal scanning. COMPARISON: [facility], CT, ABD/PELVIS W/CON (PNL), 12/21/2013, 17:39. MR, ABDOMEN W&W/O CONTRAST, 12/22/2013, 20:16. US, PELVIS SONO TRANSVAGINAL (PNL), 12/23/2013, 12:29. [facility], CT, CT KIDNEY URETER BLADDER (KUB), 10/23/2023, 8:17. FINDINGS: Uterus: Uterus is normal in size measuring 7.8 x 4.9 x 4.9 cm. The myometrium is heterogeneous. The endometrium measures 7.6 mm combined thickness. -There is a 2.1 x 1.9 x 1.6 cm intramural fibroid in the anterior midline near the fundus. -there is a smaller 1.7 x 1.3 x 1.3 cm masslike area in the left anterior fundus, demonstrating central sonolucency, suggesting fluid. Ovaries: Both ovaries are enlarged and have heterogeneous echotexture. The right ovary measures 7.5 x 5.4 x 5.2 cm, with a calculated ovarian volume of 89 cc. There is a thick-walled cyst in the right ovary measuring 4.5 x 4.1 x 2.6 cm. A 3.1 x 3.3 x 2.6 cm simple cyst is also noted in the right ovary. The left ovary measures 7.5 x 6.0 x 4.0 cm, with a calculated ovarian volume of 92 cc. There is a 4.2 x 3.9 x 2.9 cm thick wall complex cystic structure in the left ovary with peripheral increased vascularity. There is a 4.7 by 2.6 x 1.4 cm thick-walled anechoic structure adjacent to the left ovary, indeterminate (dilated fallopian tube versus a bowel). Suspect dilated fallopian tubes bilaterally. On Doppler ultrasound, vascularity is present in both ovaries. No adnexal masses are seen. Other: No pathologic free abdominal or pelvic fluid. IMPRESSION: 1. Ovaries are enlarged with complex cysts bilaterally. Question dilated fallopian tubes bilaterally. The ultrasound findings are suggestive of hydrosalpinx and tubal or abscesses. Recommend clinical correlation. After adequate treatment, recommend a short-term follow-up ultrasound. 2. Myomatous uterus with 2 uterine fibroids. One of the fibroid demonstrates central sonolucency suggesting fluid, most likely a degenerating fibroid. Consider MRI for follow-up evaluation if clinically indicated. Labs 10/23/23 07:30 10/23/23 07:30 Labs: Laboratory Results - last 24 hr 10/23/23 10/23/23 10/23/23 04:57 07:30 07:35 WBC 17.5 H RBC 4.26 Hgb 13.0 Hct 37.4 MCV 87.7 MCH 30.5 MCHC 34.8 RDW 13.1 Plt Count 180 Neut % (Auto) 83.7 H Lymph % (Auto) 9.3 L [place] % (Auto) 5.7 Eos % (Auto) 0.9 L Baso % (Auto) 0.4 Neut # (Auto) 03025 H Lymph # (Auto) 1600 [place] # (Auto) 1000 H Eos # (Auto) 200 Baso # (Auto) 100 Sodium 133 L Potassium 4.3 Chloride 100 Carbon Dioxide 25 BUN 13 Creatinine 0.51 L Estimated GFR > 60 BUN/Creatinine Ratio 25.5 H Glucose 113 H Lactate 1.2 Calcium 8.9 Total Bilirubin 0.7 AST 28 ALT 20 Alkaline Phosphatase 60 Total Protein 8.1 Albumin 4.1 Globulin 4.0 Albumin/Globulin Ratio 1.0 Serum , Qual Negative Urine RBC 0-1/hpf Urine WBC 5-10/hpf H Ur Squamous Epith Cells 5-10 /hpf H Urine Bacteria Moderate (10-30) H Urine Mucus 1+ H Ur Culture Indicated? Specimen cultured Urine Test Negative Assessment & Plan Assessment and plan (1) Tubo-ovarian abscess: Status: Acute (2) Asthma: Qualifiers: Asthma complication type: unspecified Asthma persistence: unspecified Asthma severity: unspecified severity Qualified Code(s): J45.909 - Unspecified asthma, uncomplicated Status: Acute (3) Hepatitis C test positive: Status: Acute Assessment & Plan narrative: Patient with history of incompletely treated Trichomonas due to allergy with 3 day history of pain and ultrasound suggestive of tubo-ovarian abscess with elevated white count. Patient will be admitted for IV antibiotics. Will monitor to see whether surgical treatment will be necessary. Time Spent With Patient Time with patient: less than 30 minutes
[2023-10-23 15:36] LABS: Urine N gonorrhoeae NOT DETECTED
[2023-10-23] MEDS: LACTATED RINGERS 1,000 ML 100 ML IV (15:36)
[2023-10-23] MEDS: CLINDAMYCIN 900 MG/50 ML PIGGYBACK 50 MG IV ×2 (15:36→23:12)
[2023-10-23 15:39] LABS: Urine Chlamydia NOT DETECTED
[2023-10-23] MEDS: ALBUTEROL 2.5 MG/3 ML NEB (ADULT) INH ×2 (16:00→23:13)
--- NOTE | 2023-10-23 18:43 | PC.NURSE ---
Patient has been resting comfortably. She showered and is visiting with her s.o. She admits to using marijuana, meth, and a gram of fentanyl. Patient denies pain and is not having any withdrawals. Tolerating ivf .
[2023-10-23] MEDS: IBUPROFEN 600 MG TABLET PO (18:50)
[2023-10-23] MEDS: ACETAMINOPHEN 325 MG TABLET 650 MG PO (18:51)
[2023-10-23] MEDS: DOXYCYCLINE HYCLATE 100 MG TABLET PO (21:13)
[2023-10-23] MEDS: OXYCODONE IR 5 MG TABLET PO (21:21)
[2023-10-24 04:00] VITALS: BP 115/68; PULSE 80; RESP 17; TEMP 36; O2SAT 96
[2023-10-24] MEDS: OXYCODONE IR 5 MG TABLET PO ×2 (04:11→09:26)
[2023-10-24] MEDS: LACTATED RINGERS 1,000 ML 100 ML IV (04:11)
[2023-10-24] MEDS: ACETAMINOPHEN 325 MG TABLET 650 MG PO (04:11)
[2023-10-24] MEDS: cefTRIAXone 1,000 MG in SODIUM CHLORIDE 0.9% 100 ML 200 MG IV (06:07)
[2023-10-24] MEDS: CLINDAMYCIN 900 MG/50 ML PIGGYBACK 50 MG IV (06:42)
[2023-10-24 06:46] LABS: Add Manual Diff / Slide Review NO; Basophils Absolute Auto 0 /uL (0-100); Basophils Percent Auto 0.2 % (0-2); Eosinophils Absolute Auto 100 /uL (0-450); Eosinophils Percent Auto 1.1 % (2-4); Lymphocytes Absolute Auto 800 /uL (1100-4500); Lymphocytes Percent Auto 6.8 % (25-40); Mean Corpuscular HGB Conc 34.6 % (30-36); Mean Corpuscular Hemoglobin 30.6 PG (26-34); Mean Corpuscular Volume 88.4 fL (80-100); Monocytes Absolute Auto 700 /uL (0-900); Monocytes Percent Auto 5.7 % (3-14); Neutrophils Absolute Auto 10400 /uL (1500-7000); Neutrophils Percent Auto 86.2 % (50-75); Platelet Count 140 X10^3/uL (150-400); Red Blood Cell Count 3.28 X10^6/uL (4.0-5.2); Red Cell Distribution Width 13.2 % (11.6-14.8); White Blood Cell Count 12.1 X10^3/uL (4.5-11.0)
[2023-10-24] MEDS: ALBUTEROL 2.5 MG/3 ML NEB (ADULT) INH (07:28)
[2023-10-24 07:32] VITALS: PULSE 93; RESP 16; O2SAT 99
--- NOTE | 2023-10-24 08:59 | PM.PN.1 ---
Subjective Subjective Date Patient Seen: 10/24/23 Time Patient Seen: 08:59 Interval history: Patient i is feeling somewhat better today. She is ambulatory. She is tolerating regular diet. She is urinating well. She is still complaining of abdominal pain but more tolerable. Exam Vital Signs (past 8 hours): - 10/24/23 04:00 10/24/23 07:32 Temperature 96.8 F L Pulse Rate 80 93 H Respiratory Rate 17 16 Blood Pressure 115/68 Pulse Oximetry 96 99 Oxygen Delivery Method Room Air Oxygen Flow Rate 0 0 Oxygen Delivery Method Room Air Oxygen Flow Rate 0 Narrative Exam Narrative: Abdomen is soft slightly distended and shredder tender peat to palpation, no rebound. Extremities without edema and nontender. Objective Labs 10/24/23 06:34 10/23/23 07:30 Labs: Laboratory Results - last 24 hr 10/23/23 10/23/23 10/24/23 07:35 12:40 06:34 WBC 12.1 H RBC 3.28 L Hgb 10.0 L Hct 29.0 L MCV 88.4 MCH 30.6 MCHC 34.6 RDW 13.2 Plt Count 140 L Neut % (Auto) 86.2 H Lymph % (Auto) 6.8 L [place] % (Auto) 5.7 Eos % (Auto) 1.1 L Baso % (Auto) 0.2 Neut # (Auto) 78498 H Lymph # (Auto) 800 L [place] # (Auto) 700 Eos # (Auto) 100 Baso # (Auto) 0 Serum , Qual Negative Ur Chlamydia DNA (PCR) Not detected N gonorrhoeae DNA (PCR) Not detected [facility] Medical History (Updated 10/23/23 @ 14:23 by Opal Banda MD) Drug abuse Allergic reaction to drug Social History Smoking Status: Current every day smoker alcohol intake: never Assessment & Plan Assessment and plan (1) Tubo-ovarian abscess: Status: Acute Assessment & Plan narrative: Patient is afebrile with falling white count on IV antibiotics. Continue IV antibiotics. Repeat ultrasound tomorrow. Decision about surgery after ultrasound. Time Spent With Patient Time with patient: less than 30 minutes Quality VTE Deep Vein Thrombosis/Pulmonary Embolism Present on Admission: No
[2023-10-24] MEDS: IBUPROFEN 600 MG TABLET PO (09:26)
[2023-10-24] MEDS: DOXYCYCLINE HYCLATE 100 MG TABLET PO (09:26)
[2023-10-24] MEDS: ONDANSETRON 4 MG/2 ML INJ IV (10:20)
[2023-10-24 11:15] VITALS: BP 106/55; PULSE 89; RESP 18; TEMP 36.2; O2SAT 100
--- NOTE | 2023-10-24 12:43 | PC.NURSE ---
Day shift: Dr Ford tax compliance officer made aware of Pt leaving AMA today. Left unit at approx 1245. HAs all personal belongings. Pt states I can't handle it and I need to leave. Pt stated to this scientific technical writer I've been trying to not use Fentanyl but I have to leave. AMA paperwork explained and signed. Pt given resource handout for safe places to stay. Pt homeless and lives in car at this time.
--- NOTE | 2023-10-25 08:51 | PM.DS.1 ---
History of Present Illness History of Present Illness Date Patient Seen: 10/24/23 Time Patient Seen: 09:00 Chief complaint: possible kidney infection Narrative: Patient was admitted for IV antibiotics for possible tubo-ovarian abscess. After the patient was seen by me she left Against Medical Advice. Apparently despite my discussion with her about drug use, which she initially denied, she is going through withdrawal and decided to leave so she could use drugs. She apparently did not want to discuss treatment options for her drug withdrawal. Discharge Providers Provider Date of admission: 10/23/23 13:14 Discharge Date: 10/24/23 Consults: 10/24/23 04:51 Consult to [facility] [place] [facility] [employer] Routine Comment: Discharge provider: Opal Banda MD Summary Hospital Course Discharge Diagnosis: Possible tubo-ovarian abscess Hospital Course: Patient was admitted from the emergency room for pain, elevated white count, ultrasound suggestive of possible tubo-ovarian abscess. Patient was started on IV antibiotics. She was starting to improve with decreasing white blood cell count. Patient left against medical advice due to drug withdrawal. Status at Discharge Functional status at discharge: independent ambulation Overall status at discharge: patient is progressing back to baseline Time Spent with Patient Time spent: Less than 30 minutes Exam Vital Signs (past 8 hours): Oxygen Delivery Method Room Air Oxygen Flow Rate 0 Narrative Exam Narrative: Exam not repeated because the patient left against medical advice before she could be seen Objective Labs 10/24/23 06:34 10/23/23 07:30 PFSH Medical History (Updated 10/25/23 @ 05:43 by Beryl Levine MD) Drug abuse Allergic reaction to drug Social History Smoking Status: Current every day smoker alcohol intake: never Discharge Assessment & Plan Assessment and Plan Assessment: Patient with possible tubo-ovarian abscess treated with IV antibiotics who left against medical advice it appears from need to use drugs. Plan of Treatment: Patient left against medical advice without any plan of treatment. Discharge Plan Discharge Plan Patient Disposition: Left Against Medical Advice Nursing Discharge Comment: Talked with Dr Ford' RN at their clinic and made them aware of AMA status. Requested a phone call back Discharge orders & Medications Prescriptions: Continued sertraline 50 mg tablet 50 mg PO DAILY albuterol sulfate 90 mcg/actuation HFA aerosol inhaler 2 puff INHALATION Q4H PRN (Reason: wheezing) doxycycline hyclate 100 mg capsule 100 mg PO BID Qty: 28 0RF Visit Report/Discharge Packet Stand Alone Forms: Patient Portal/API, Stroke Signs & Symptoms Quality VTE Deep Vein Thrombosis/Pulmonary Embolism Present on Admission: No
== END 2023-10-24 12:45 | disposition left against medical advice (07) | DRG 531 ==
LOC: ED 12:42 → AC 13:15
PROVIDERS: Emergency Medicine; Admitting Provider Specialist; Emergency Provider Emergency Medicine; Referring Provider Emergency Medicine; Visit Provider Specialist
DX: N70.03 Acute salpingitis and oophoritis (principal); B19.20 Unspecified viral hepatitis C without hepatic coma; F19.239 Other psychoactive substance dependence with withdrawal, unspecified; F17.210 Nicotine dependence, cigarettes, uncomplicated; Z53.29 Procedure and treatment not carried out because of patient's decision for other reasons
CPT/HCPCS: 74176; 76830; 76856; 80053; 81003; 81015; 81025; 83605; 84703; 85025; 87077; 87086; 87186; 87210; 87491; 87591; 94640; 96365; 96367; 96375; 96376; 99222; 99283; 99284; J0696; J1885; J2405; J7613

== ENCOUNTER 2023-10-25 02:42 | Emergency (ER) | payer OTHER, MEDICAID, SELFPAY ==
[2023-10-23 14:26] VITALS: BMI 27.3
[2023-10-25] VITALS (8 sets, daily range): BP systolic 116–136; BP diastolic 62–76; PULSE 84–97; RESP 18; TEMP 36.6–36.9; O2SAT 99–100; BMI 27.3
--- NOTE | 2023-10-25 03:00 | ED_ITS ---
HPI - Female Genitourinary General Chief complaint: Urogenital-Female Stated complaint: infection in female area, was admit but left AMA Time Seen by Provider: 10/25/23 02:46 History of Present Illness HPI Narrative: 33-year-old female with history of HepC, polysubstance abuse, recent history of possible tubo-ovarian abscess presents ambulatory for repeat assessment. Patient was admitted 10/23/2023 for IV antibiotics for suspected tubo-ovarian abscess, but left against medical advice 10/24/23 at 1245pm. Nursing note stated Pt states I can't handle it and I need to leave. Pt stated to this public relations writer I've been trying to not use Fentanyl but I have to leave. Patient continues to complain of lower abdominal pain. Denies fevers, chills, nausea, vomiting, other complaints at this time. Related Data Home Medications Medication Instructions Recorded Confirmed albuterol sulfate 90 mcg/actuation 2 puff inhalation Q4H PRN wheezing 10/23/23 10/23/23 aerosol inhaler sertraline 50 mg tablet 50 mg PO DAILY 10/23/23 10/23/23 Previous Rx's Medication Instructions Recorded doxycycline hyclate 100 mg capsule 100 mg PO BID #28 caps 10/25/23 Allergies Allergy/AdvReac Type Severity Reaction Status Date / Time metronidazole [From FLAGYL] Allergy Unknown Unverified 01/23/18 12:18 Review of Systems Review of Systems Narrative: Otherwise negative Patient History Medical History (Updated 10/25/23 @ 05:43 by Beryl Levine MD) Drug abuse Allergic reaction to drug alcohol intake frequency: 0-2 drinks per day Substance Use Type: marijuana, opiates and methamphetamine Exam Narrative Exam Narrative: Const: Awake, alert, no acute distress Cardiac: regular rate, regular rhythm RESP: unlabored, clear bilaterally, no wheezing GI: Atraumatic, soft, LLQ tenderness to deep palpation Skin: Warm, Dry, intact, no rashes Neuro: AO x3, CN II-XII grossly intact, moves all extremities Initial Vital Signs Initial Vital Signs: Vital Signs Temperature 97.8 F 10/25/23 02:45 Pulse Rate 96 H 10/25/23 02:45 Respiratory Rate 18 10/25/23 02:45 Blood Pressure 136/76 10/25/23 02:45 Pulse Oximetry 100 10/25/23 02:45 Oxygen Delivery Method Room Air 10/25/23 02:45 Course Orders Ordered: ED Orders 10/25/23 03:04 US pelvic complete Stat 10/25/23 03:10 UA Complete [Urinalysis and Microscopic] Stat Urine Culture Stat 10/25/23 04:10 CBC Auto Diff [Complete Blood Count AUTO DIFF] Stat CMP [Comprehensive Metabolic Panel] Stat 10/25/23 05:01 Wet Prep Tric BV Joselyn Stat Discontinued Medications Ceftriaxone Sodium (Ceftriaxone 1,000 Mg Vial) 500 mg IM NOW ONE Stop: 10/25/23 05:36 Lidocaine HCl (Lidocaine 1% (Pf) 5 Ml) 2.1 ml INJ NOW ONE Stop: 10/25/23 05:36 Vital Signs Vital signs: Vital Signs - 8 hr 10/25/23 02:45 10/25/23 02:48 10/25/23 03:00 Temperature 97.8 F Pulse Rate 96 H 94 H 94 H Respiratory Rate 18 Blood Pressure 136/76 Pulse Oximetry 100 100 99 Oxygen Delivery Method Room Air Room Air Room Air 10/25/23 04:28 10/25/23 04:28 10/25/23 04:30 Temperature Pulse Rate 97 H 84 Respiratory Rate Blood Pressure 126/68 Pulse Oximetry 100 100 Oxygen Delivery Method Room Air Room Air 10/25/23 04:30 10/25/23 05:00 10/25/23 05:00 Temperature Pulse Rate 89 Respiratory Rate Blood Pressure 122/65 116/62 Pulse Oximetry 100 Oxygen Delivery Method Room Air MDM - Female Genitourinary Differential Diagnosis Differential diagnosis: Likely urinary tract infection, bacterial vaginosis and trichomoniasis Lab Data 10/25/23 04:10 10/25/23 04:10 Labs: Lab Results 10/25/23 10/25/23 Range/Units 03:10 04:10 WBC 12.5 H (4.5-11.0) X10^3/uL RBC 3.69 L (4.0-5.2) X10^6/uL Hgb 11.1 L (12.0-16.0) g/dL Hct 32.4 L (36-46) % MCV 87.8 (80-100) fL MCH 30.1 (26-34) PG MCHC 34.2 (30-36) % RDW 13.2 (11.6-14.8) % Plt Count 196 (150-400) X10^3/uL Neut % (Auto) 74.4 (50-75) % Lymph % (Auto) 16.4 L (25-40) % [place] % (Auto) 5.7 (3-14) % Eos % (Auto) 3.2 (2-4) % Baso % (Auto) 0.3 (0-2) % Neut # (Auto) 9300 H (0028-5391) /uL Lymph # (Auto) 2000 (0497-5551) /uL [place] # (Auto) 700 (0-900) /uL Eos # (Auto) 400 (0-450) /uL Baso # (Auto) 0 (0-100) /uL Sodium 138 (137-145) mmol/L Potassium 3.3 L (3.4-5.1) mmol/L Chloride 106 (98-107) mmol/L Carbon Dioxide 25 (22-32) mmol/L BUN 5 L (7-17) mg/dL Creatinine 0.41 L (0.52-1.04) mg/dL Estimated GFR > 60 (>60) mL/min BUN/Creatinine Ratio 12.2 (6-22) Glucose 107 H (70-100) mg/dL Calcium 8.5 (8.4-10.2) mg/dL Total Bilirubin 0.3 (0.2-1.3) mg/dL AST 27 (14-36) IU/L ALT 25 (<35) IU/L Alkaline Phosphatase 69 (38-126) U/L Total Protein 6.6 (6.3-8.2) g/dL Albumin 3.4 L (3.5-5.0) g/dL Globulin 3.2 (1.7-4.1) g/dL Albumin/Globulin Ratio 1.1 (1.0-2.8) Urine Color Dark yellow Urine Appearance Clear Urine pH 7.0 (4.5-8.0) Ur Specific [place] 1.025 (1.000-1.035) Urine Protein Trace H (Negative) Urine Glucose (UA) Negative (Negative) g/dL Urine Ketones Negative (NEGATIVE) Urine Occult Blood Negative (Negative) Urine Nitrate Negative (Negative) Urine Bilirubin Negative (NEGATIVE) Urine Urobilinogen 1.0 (0.2) E.U./dL Ur Leukocyte Esterase Negative (NEGATIVE) Urine RBC 0-1/hpf (0-5/HPF) Urine WBC None seen (0-5/HPF) Ur Squamous Epith Cells 1-5 /hpf (0-5/HPF) Urine Bacteria Occasional (0-1) (None) Urine Mucus 1+ H (Negative) Ur Culture Indicated? Specimen cultured MDM Narrative Medical decision making narrative: Patient presenting for continued left-sided abdominal pain. Patient was admitted several days prior for suspected tubo-ovarian abscess. She has been on IV antibiotics until yesterday when she left against medical advice. Abdomen soft, vital signs stable. Per the last OBGYN progress note before patient left against medical advice the plan was to obtain a repeat pelvic ultrasound to determine if surgery would be needed. Labs and repeat imaging ordered. Laboratory work shows stable WBC count and downtrending neutrophil count. CMP unchanged from prior on 10/23/2023. Gonorrhea and chlamydia from 10/23/23 negative, Wet mount negative for clue cells, yeast, trich. Ultrasound of the pelvis shows bilateral ovarian cysts, seen previously. No evidence of tubo- ovarian abscess present. Discussed patient's case with Dr. Ford of [facility], who stated that with the improved laboratory work and ultrasound patient does not need to be admitted to the hospital and recommends outpatient antibiotics for 2 weeks to treat for pelvic inflammatory disease. Patient reports allergy to Flagyl and there do not appear to be any suitable alternatives at this time. Doxycycline sent to pharmacy of choice. Patient counseled on the importance of adhering to antibiotic regimen even if she feels better. ED return precautions discussed at bedside. Patient expressed understanding of the plan and is in agreement at this time. All questions answered at the time of discharge. Discharge Plan Departure Patient Disposition: Home Clinical Impression: Acute pelvic inflammatory disease Instructions: DI for Pelvic Inflammatory Disease (PID) Prescriptions: New doxycycline hyclate 100 mg capsule 100 mg PO BID Qty: 28 0RF No Action sertraline 50 mg tablet 50 mg PO DAILY albuterol sulfate 90 mcg/actuation HFA aerosol inhaler 2 puff INHALATION Q4H PRN (Reason: wheezing) Stand Alone Forms: Patient Portal/API
--- NOTE | 2023-10-25 03:04 | DI.US.S_ITS ---
PROCEDURE: US PELVIC COMPLETE INDICATIONS: LLQ pain, poss tubo-ovarian abscess TECHNIQUE: Real-time scanning was performed of the pelvic organs, with image documentation. Additional endovaginal scanning was necessary due to incomplete visualization of the adnexal and endometrial structures by transabdominal scanning. COMPARISON: [facility], , US PELVIC COMPLETE, 10/23/2023, 10:35. FINDINGS: Uterus: Uterus is anteverted and normal in size at 8.3 x 4.4 x 5.8 cm. The myometrium is heterogeneous. The endometrium measures 5.6 mm combined thickness. Right anterior intramural fibroid measuring 1.9 cm. Ovaries: The right ovary measures 6.4 x 4.6 x 6.5 cm, with a calculated ovarian volume of 100 cc. Complex cyst measuring 3.1 cm. This previously measured 4.5 cm. Simple cyst measuring 4.8 cm, previously 3.3 cm. The left ovary measures 6.8 x 5.3 x 5.2 cm, with a calculated ovarian volume of 98 cc. Complex cyst measuring 3.7 cm, previously 4.7 cm. Less than 12 follicles can be seen in each ovary. No adnexal masses are seen. Normal vascularity is seen to the bilateral ovaries. No evidence of tubo-ovarian abscess or hydrosalpinx. Other: No pathologic free abdominal or pelvic fluid. IMPRESSION: No evidence of tubo-ovarian abscess. Flow is seen to the bilateral ovaries. Bilateral complex ovarian cysts as described above. Recommend 6-12 week follow-up ultrasound. Fibroid uterus. Findings are concordant with preliminary interpretation provided by [facility]. We strive to produce accurate, complete, and clear reports of imaging services. To assist us in improving patient care, this report was composed using standard report templates and voice recognition software. Therefore, it may contain abnormal punctuation, insertions and/or omissions. Occasional wrong-word or sound-alike substitutions may occur. Though we review the report and make efforts to correct it, we do recommend that the report be read carefully in proper context to recognize any text inaccuracies. Dictated by: Chandler Ruth M.D. on 10/25/2023 at 8:07 Approved by: Chandler Ruth M.D. on 10/25/2023 at 8:16
[2023-10-25 03:29] LABS: Appearance Urine UA CLEAR; Bilirubin Urine UA NEGATIVE (NEGATIVE); Glucose Urine UA NEGATIVE (Negative); Ketones Urine UA NEGATIVE (NEGATIVE); Leukocyte Esterase Urine UA NEGATIVE (NEGATIVE); Nitrite Urine UA NEGATIVE (Negative); Occult Blood Urine UA NEGATIVE (Negative); Protein Urine UA TRACE (Negative); Specific Gravity Urine UA 1.025 (1.000-1.035)
[2023-10-25 03:35] LABS: Color Urine UA Dark Yellow
[2023-10-25 03:36] LABS: Bacteria Urine Occasional (0-1); Mucus Urine 1+ (Negative); RBC Urine 0-1/HPF (0-5/HPF); Squamous Epithelial Cell Urine 1-5 /HPF (0-5/HPF); WBC Urine None Seen (0-5/HPF)
[2023-10-25 03:37] LABS: Culture Indicated Urine Specimen Cultured
[2023-10-25 04:20] LABS: Add Manual Diff / Slide Review NO; Basophils Absolute Auto 0 /uL (0-100); Basophils Percent Auto 0.3 % (0-2); Eosinophils Absolute Auto 400 /uL (0-450); Eosinophils Percent Auto 3.2 % (2-4); Hematocrit 32.4 % (36-46); Hemoglobin 11.1 g/dL (12.0-16.0); Lymphocytes Absolute Auto 2000 /uL (1100-4500); Lymphocytes Percent Auto 16.4 % (25-40); Mean Corpuscular HGB Conc 34.2 % (30-36); Mean Corpuscular Hemoglobin 30.1 PG (26-34); Mean Corpuscular Volume 87.8 fL (80-100); Monocytes Absolute Auto 700 /uL (0-900); Monocytes Percent Auto 5.7 % (3-14); Neutrophils Absolute Auto 9300 /uL (1500-7000); Neutrophils Percent Auto 74.4 % (50-75); Platelet Count 196 X10^3/uL (150-400); Red Blood Cell Count 3.69 X10^6/uL (4.0-5.2); Red Cell Distribution Width 13.2 % (11.6-14.8); White Blood Cell Count 12.5 X10^3/uL (4.5-11.0)
[2023-10-25 04:29] LABS: Alanine Aminotransferase 25 IU/L (<35); Albumin 3.4 g/dL (3.5-5.0); Albumin Globulin Ratio 1.1 (1.0-2.8); Alkaline Phosphatase 69 U/L (38-126); Aspartate Aminotransferase 27 IU/L (14-36); BUN Creatinine Ratio 12.2 (6-22); Bilirubin Total 0.3 mg/dL (0.2-1.3); Blood Urea Nitrogen 5 mg/dL (7-17); Calcium 8.5 mg/dL (8.4-10.2); Carbon Dioxide 25 mmol/L (22-32); Chloride 106 mmol/L (98-107); Estimated Glomerular Filt Rate > 60 mL/min (>60); Globulin 3.2 g/dL (1.7-4.1); Glucose 107 mg/dL (70-100); HEMOLYSIS < 15 (0-50); Potassium 3.3 mmol/L (3.4-5.1); Sodium 138 mmol/L (137-145); Total Protein 6.6 g/dL (6.3-8.2)
[2023-10-25] MEDS: cefTRIAXone 1,000 MG VIAL 500 MG IM (05:51)
[2023-10-25] MEDS: LIDOCAINE 1% (PF) 5 ML 2.1 ML INJ (05:51)
== END 2023-10-25 06:05 | disposition home or self-care (01) ==
PROVIDERS: Emergency Provider Emergency Medicine
DX: N73.9 Female pelvic inflammatory disease, unspecified (principal)
CPT/HCPCS: 36415; 76830; 76856; 80053; 81001; 85025; 87086; 87210; 96372; 99284; J0696